=== PATIENT | female | born 1940 | race Asian ===

== ENCOUNTER 2023-05-23 08:32 | Outpatient (CLI) | payer OTHER ==
[~2023-05-23 08:32] MED LIST: ADVAIR DISK2 IN; ALLOPURINOL300 MG PO; BYSTOLIC10 MG PO; LISINOP/HCTZ1 TA2 PO; LISINOPRIL10 MG PO; PROAIR HFA INH
== END 2023-05-23 22:01 | disposition home or self-care (01) ==
LOC: CT 08:32
PROVIDERS: ATTEND Internal Medicine
DX: R91.8 Other nonspecific abnormal finding of lung field (principal)
CPT/HCPCS: 36415; 82565; 84520